=== PATIENT | female | born 1950 | race Asian ===

== ENCOUNTER 2020-10-25 17:29 | Inpatient (IN) | payer MEDICARE, MEDICAID ==
[~2020-10-25] VITALS: Ht 160 cm; Wt 52.3 kg
[2020-10-25 18:32] LABS: BASOPHILS % (AUTO) 1.2 % (0.0-2.0); EOSINOPHILS % (AUTO) 1.6 % (1.0-6.0); HEMATOCRIT 30.1 % (36-46); HEMOGLOBIN 9.6 g/dL (12.0-16.0); LYMPHOCYTES # (AUTO) 1.3 K/uL (1.0-4.8); LYMPHOCYTES % (AUTO) 32.5 % (22.0-44.0); MEAN CORPUSCULAR HEMOGLOBIN 22.9 pg (26.0-34.0); MEAN CORPUSCULAR HGB CONC 31.8 G/dL (31.0-37.0); MEAN CORPUSCULAR VOLUME 72 fL (80-100); MONOCYTES # (AUTO) 0.3 K/uL (0.1-1.0); MONOCYTES % (AUTO) 8.7 % (2.0-9.0); NEUTROPHILS # (AUTO) 2.2 K/uL (1.8-7.7); PLATELET COUNT (AUTO) 246 K/uL (150-450); RED BLOOD CELL COUNT(AUTO) 4.17 MIL/uL (4.00-5.20); RED CELL DISTRIBUTION WIDTH 16.9 % (11.5-14.5)
[2020-10-25 18:41] LABS: ANION GAP 10 mmol/L (8-16); CALCIUM, TOTAL 9.4 mg/dL (8.8-10.5); CARBON DIOXIDE 24 mmol/L (22-29); CHLORIDE 108 mmol/L (98-107); CREATININE 1.95 mg/dL (0.60-1.30); GLOMERULAR FILTR. RATE CALC 25 mL/min (>60); GLUCOSE,RANDOM 124 mg/dL (70-110); POTASSIUM 4.3 mmol/L (3.5-5.1); SODIUM SERUM 142 mmol/L (136-145); UREA NITROGEN, BLOOD 33 mg/dL (7-18)
[2020-10-25 18:48] LABS: ALANINE AMINOTRANSFERASE 24 U/L (12-78); ALBUMIN 3.8 g/dL (3.4-5.0); ALKALINE PHOSPHATASE 42 U/L (46-116); ASPARTATE AMINOTRANSFERASE 28 U/L (15-37); BILIRUBIN,TOTAL 0.3 mg/dL (0.1-1.0); TOTAL PROTEIN, SERUM 7.9 g/dL (6.4-8.2)
[2020-10-25 19:24] LABS: COVID AG,FIA SOURCE NASOPHARYNGEAL
[2020-10-25] MEDS ORDERED: ZOLPIDEM TARTRATE 10 MG TABLET PO PRN (20:00)
[2020-10-25] MEDS ORDERED: HALOPERIDOL 5 MG TABLET PO PRN (20:00)
[2020-10-25 22:07] VITALS: BP 150/78
[2020-10-25] MEDS ORDERED: ALBUTEROL SULFATE HFA 90 MCG/PUFF 8 GM INHALER IH PRN (23:30)
[2020-10-26] MEDS: LIOTHYRONINE SODIUM 5 MCG TABLET PO SCH (06:24)
[2020-10-26] MEDS: LEVOTHYROXINE SODIUM 88 MCG TABLET PO SCH (06:24)
[2020-10-26 06:32] VITALS: BP 145/65
[2020-10-26 06:39] LABS: GLUCOMETER DEV NAME(LOC) 3E.I 2; GLUCOSE,POINT OF CARE 91 MG/DL (70-110)
[2020-10-26] MEDS ORDERED: DEXTROSE 50%-WATER 25 GM/50 ML SYRINGE IVP PRN (06:45)
[2020-10-26 06:57] LABS: CHOL/HDL RATIO 3.7 (3.9-5.7)
[2020-10-26] MEDS ORDERED: ALBUTEROL SULFATE HFA 90 MCG/PUFF 8 GM INHALER IH PRN (07:00)
[2020-10-26] MEDS ORDERED: MAGNESIUM HYDROXIDE SUSPENSION 30 ML UDCUP PO PRN (07:00)
[2020-10-26] MEDS ORDERED: ONDANSETRON HCL 4 MG TABLET PO PRN (07:00)
[2020-10-26] MEDS ORDERED: GuaiFENesin/D-METHORPHAN [SUGAR-FREE] 200-20MG/10 ML SYRUP UDCUP PO PRN (07:00)
[2020-10-26] MEDS ORDERED: CloNIDine HCL 0.1 MG TABLET PO PRN (07:00)
[2020-10-26] MEDS ORDERED: PETROLATUM,WHITE 28 GM JELLY TP PRN (07:00)
[2020-10-26] MEDS ORDERED: DOCUSATE SODIUM 100 MG CAPSULE PO PRN (07:00)
[2020-10-26] MEDS ORDERED: LOPERAMIDE HCL 2 MG CAPSULE PO PRN (07:00)
[2020-10-26] MEDS ORDERED: MAG HYDROX/AL HYDROX/SIMETH ES 30 ML SUSPENSION UDCUP PO PRN (07:00)
[2020-10-26] MEDS ORDERED: NICOTINE 14 MG/24 HOUR PATCH TD PRN (07:00)
[2020-10-26 08:00] VITALS: BP 134/78
[2020-10-26] MEDS ORDERED: CYANOCOBALAMIN 500 MCG TABLET PO SCH (09:00)
[2020-10-26] MEDS ORDERED: OLMESARTAN MEDOXOMIL 40 MG TABLET PO SCH (09:00)
[2020-10-26] MEDS ORDERED: IRBESARTAN 150 MG TABLET PO SCH (09:00)
[2020-10-26] MEDS: CLOPIDOGREL BISULFATE 75 MG TABLET PO SCH (10:18)
[2020-10-26] MEDS: OMEGA-3/DHA/EPA/FISH OIL 1,000 MG CAPSULE PO SCH ×2 (10:18→16:24)
[2020-10-26] MEDS: THIAMINE 100 MG TABLET PO SCH (10:18)
[2020-10-26] MEDS: CARVEDILOL 6.25 MG TABLET PO SCH ×2 (10:19→16:24)
[2020-10-26] MEDS: OXYBUTYNIN CHLORIDE 5 MG TABLET PO SCH ×2 (10:19→16:24)
[2020-10-26] MEDS: EZETIMIBE 10 MG TABLET PO SCH (10:19)
[2020-10-26] MEDS: BUDESONIDE/FORMOTEROL FUMARATE 160-4.5 MCG/PUFF 10.2 GM INHALER IH SCH ×2 (10:20→16:24)
[2020-10-26] MEDS: GABAPENTIN 300 MG CAPSULE PO SCH ×2 (10:23→16:24)
[2020-10-26] MEDS: AmLODIPine BESYLATE 10 MG TABLET PO SCH (10:23)
[2020-10-26] MEDS: PANTOPRAZOLE SODIUM 40 MG DR TABLET PO SCH ×2 (10:23→16:25)
[2020-10-26] MEDS: INSULIN LISPRO 100 UNITS/ML SQ PRN ×2 (12:15→20:59)
[2020-10-26 12:23] LABS: GLUCOMETER DEV NAME(LOC) 3E.I 2; GLUCOSE,POINT OF CARE 101 MG/DL (70-110)
[2020-10-26] MEDS: LORazepam 2 MG TABLET PO PRN (16:49)
[2020-10-26 16:50] LABS: GLUCOMETER DEV NAME(LOC) 3E.I 2; GLUCOSE,POINT OF CARE 90 MG/DL (70-110)
[2020-10-26 20:28] LABS: GLUCOMETER DEV NAME(LOC) 3E.I 2; GLUCOSE,POINT OF CARE 151 MG/DL (70-110)
[2020-10-26] MEDS: ESCITALOPRAM OXALATE 10 MG TABLET PO SCH (20:54)
[2020-10-26] MEDS: ROSUVASTATIN CALCIUM 20 MG TABLET PO SCH (20:55)
[2020-10-27] MEDS: LIOTHYRONINE SODIUM 5 MCG TABLET PO SCH (06:02)
[2020-10-27] MEDS: LEVOTHYROXINE SODIUM 88 MCG TABLET PO SCH (06:02)
[2020-10-27 06:41] LABS: GLUCOMETER DEV NAME(LOC) 3E.I 2; GLUCOSE,POINT OF CARE 124 MG/DL (70-110)
[2020-10-27 06:54] LABS: ALBUMIN 3.4 g/dL (3.4-5.0); BILIRUBIN,TOTAL 0.3 mg/dL (0.1-1.0); CREATININE 1.48 mg/dL (0.60-1.30); MAGNESIUM 1.9 mg/dL (1.80-2.40); PHOSPHORUS 3.4 mg/dL (2.5-4.9); POTASSIUM 4.1 mmol/L (3.5-5.1); TOTAL PROTEIN, SERUM 6.8 g/dL (6.4-8.2)
[2020-10-27 08:00] VITALS: BP 123/68
[2020-10-27] MEDS: OMEGA-3/DHA/EPA/FISH OIL 1,000 MG CAPSULE PO SCH ×2 (09:28→17:00)
[2020-10-27] MEDS: PANTOPRAZOLE SODIUM 40 MG DR TABLET PO SCH ×2 (09:28→17:00)
[2020-10-27] MEDS: THIAMINE 100 MG TABLET PO SCH (09:29)
[2020-10-27] MEDS: OXYBUTYNIN CHLORIDE 5 MG TABLET PO SCH ×2 (09:29→17:00)
[2020-10-27] MEDS: GABAPENTIN 300 MG CAPSULE PO SCH ×2 (09:29→17:00)
[2020-10-27] MEDS: EZETIMIBE 10 MG TABLET PO SCH (09:29)
[2020-10-27] MEDS: CLOPIDOGREL BISULFATE 75 MG TABLET PO SCH (09:29)
[2020-10-27] MEDS: CARVEDILOL 6.25 MG TABLET PO SCH ×2 (09:29→17:00)
[2020-10-27] MEDS: ESCITALOPRAM OXALATE 10 MG TABLET PO SCH (09:29)
[2020-10-27] MEDS: AmLODIPine BESYLATE 10 MG TABLET PO SCH (09:29)
[2020-10-27] MEDS: BUDESONIDE/FORMOTEROL FUMARATE 160-4.5 MCG/PUFF 10.2 GM INHALER IH SCH ×2 (09:31→17:00)
[2020-10-27] MEDS: LORazepam 2 MG TABLET PO PRN (10:31)
[2020-10-27] MEDS ORDERED: CHOLECALCIFEROL (VIT D3) 50,000 UNITS [1,250 MCG] CAPSULE PO SCH (11:30)
[2020-10-27] MEDS: IRBESARTAN 150 MG TABLET PO SCH ×2 (14:12→17:00)
[2020-10-27] MEDS: CYANOCOBALAMIN 500 MCG TABLET PO SCH (14:12)
[2020-10-27] MEDS: INSULIN LISPRO 100 UNITS/ML SQ PRN (14:18)
[2020-10-27 14:28] LABS: GLUCOMETER DEV NAME(LOC) 3E.I 2; GLUCOSE,POINT OF CARE 124 MG/DL (70-110)
[2020-10-27 16:05] VITALS: BP 119/60
[2020-10-27 17:26] LABS: GLUCOMETER DEV NAME(LOC) 3E.I 2; GLUCOSE,POINT OF CARE 104 MG/DL (70-110)
[2020-10-27] MEDS: ROSUVASTATIN CALCIUM 20 MG TABLET PO SCH (20:31)
[2020-10-27 21:01] LABS: GLUCOMETER DEV NAME(LOC) 3E.I 2; GLUCOSE,POINT OF CARE 104 MG/DL (70-110)
[2020-10-28 05:17] VITALS: BP 160/76
[2020-10-28] MEDS: ACETAMINOPHEN 325 MG TABLET PO PRN ×2 (05:57→17:04)
[2020-10-28] MEDS: LIOTHYRONINE SODIUM 5 MCG TABLET PO SCH (06:24)
[2020-10-28] MEDS: LEVOTHYROXINE SODIUM 88 MCG TABLET PO SCH (06:24)
[2020-10-28 06:32] LABS: GLUCOMETER DEV NAME(LOC) 3E.I 2; GLUCOSE,POINT OF CARE 95 MG/DL (70-110)
[2020-10-28 08:00] VITALS: BP 136/78
[2020-10-28] MEDS: EZETIMIBE 10 MG TABLET PO SCH (08:52)
[2020-10-28] MEDS: CARVEDILOL 6.25 MG TABLET PO SCH ×2 (08:52→17:12)
[2020-10-28] MEDS: ESCITALOPRAM OXALATE 10 MG TABLET PO SCH (08:52)
[2020-10-28] MEDS: IRBESARTAN 150 MG TABLET PO SCH ×2 (08:52→17:12)
[2020-10-28] MEDS: CYANOCOBALAMIN 500 MCG TABLET PO SCH (08:52)
[2020-10-28] MEDS: BUDESONIDE/FORMOTEROL FUMARATE 160-4.5 MCG/PUFF 10.2 GM INHALER IH SCH ×2 (08:52→16:56)
[2020-10-28] MEDS: CLOPIDOGREL BISULFATE 75 MG TABLET PO SCH (08:52)
[2020-10-28] MEDS: OXYBUTYNIN CHLORIDE 5 MG TABLET PO SCH ×2 (08:53→16:57)
[2020-10-28] MEDS: OMEGA-3/DHA/EPA/FISH OIL 1,000 MG CAPSULE PO SCH ×2 (08:53→16:56)
[2020-10-28] MEDS: THIAMINE 100 MG TABLET PO SCH (08:53)
[2020-10-28] MEDS: GABAPENTIN 300 MG CAPSULE PO SCH ×2 (08:54→16:57)
[2020-10-28] MEDS: PANTOPRAZOLE SODIUM 40 MG DR TABLET PO SCH ×2 (08:54→16:57)
[2020-10-28] MEDS: AmLODIPine BESYLATE 10 MG TABLET PO SCH (08:54)
[2020-10-28] MEDS: LORazepam 2 MG TABLET PO PRN (10:40)
[2020-10-28 11:58] LABS: GLUCOMETER DEV NAME(LOC) 3E.I 2; GLUCOSE,POINT OF CARE 77 MG/DL (70-110)
[2020-10-28] MEDS ORDERED: CARV6 PO (12:34)
[2020-10-28] MEDS ORDERED: AMLO-258 PO (12:34)
[2020-10-28] MEDS ORDERED: CLOP-31 PO (12:34)
[2020-10-28] MEDS ORDERED: CHOL500043 PO (12:34)
[2020-10-28] MEDS ORDERED: LEVO125T95 PO (12:34)
[2020-10-28] MEDS ORDERED: BUDE10.2 IH (12:34)
[2020-10-28] MEDS ORDERED: ESCI-8 PO (12:34)
[2020-10-28] MEDS ORDERED: CYAN100056 SQ (12:34)
[2020-10-28] MEDS ORDERED: GABA-1181 PO (12:34)
[2020-10-28] MEDS ORDERED: EZET10TA13 PO (12:34)
[2020-10-28] MEDS ORDERED: IRBE150T51 PO (12:34)
[2020-10-28] MEDS ORDERED: PANT-31 PO (12:40)
[2020-10-28] MEDS ORDERED: ROSU20TA23 PO (12:40)
[2020-10-28] MEDS ORDERED: OXYB5XL PO (12:40)
[2020-10-28] MEDS ORDERED: LIOT5 PO (12:40)
[2020-10-28] MEDS ORDERED: OMEG-135 PO (12:40)
[2020-10-28] MEDS ORDERED: THIA100T80 PO (12:40)
[2020-10-28] MEDS: INSULIN LISPRO 100 UNITS/ML SQ PRN (13:28)
[2020-10-28 16:45] LABS: GLUCOMETER DEV NAME(LOC) 3E.I 2; GLUCOSE,POINT OF CARE 99 MG/DL (70-110)
== END 2020-10-28 17:30 | disposition home or self-care (01) | DRG 885 ==
LOC: EMS 17:32 → 3EX 19:53
PROVIDERS: ADMIT Psychiatry & Neurology Child & Adolescent Psychiatry; ATTEND Psychiatry & Neurology Child & Adolescent Psychiatry
DX: F33.2 Major depressive disorder, recurrent severe without psychotic features (principal); N18.9 Chronic kidney disease, unspecified; R45.851 Suicidal ideations; E78.5 Hyperlipidemia, unspecified; F41.1 Generalized anxiety disorder; I12.9 Hypertensive chronic kidney disease with stage 1 through stage 4 chronic kidney disease, or unspecified chronic kidney disease; I25.10 Atherosclerotic heart disease of native coronary artery without angina pectoris; E11.22 Type 2 diabetes mellitus with diabetic chronic kidney disease; D72.819 Decreased white blood cell count, unspecified; Z20.828 Contact with and (suspected) exposure to other viral communicable diseases; R32 Unspecified urinary incontinence; Z79.02 Long term (current) use of antithrombotics/antiplatelets; I25.2 Old myocardial infarction; Z95.1 Presence of aortocoronary bypass graft
CPT/HCPCS: 83735; 84100; 87426; G0378; G0480